=== PATIENT | male | born 1980 | race Caucasian/White ===

== ENCOUNTER 2017-12-26 07:47 | Day surgery (SDC) | payer OTHER, SELFPAY ==
--- NOTE | 2017-12-26 | EGD_PTH ---
PATIENT: GAVI JENSEN LOC: EN U#:[id number] AGE/SX: 37/M ROOM: RE12/26/[address]: Dr. Mike Adamson MD : 1980 BED: DIS: 12/26/2017 SPEC #: [id number] RECD: 12/26/17 11:55 STATUS: ERIKA ANNA #: [id number] GRANT: 12/26/17 00:[address]: Mike Adamson DEPT: SURGICAL PATHOLOGY RECD BY: Carlito De La Garza ENTERED: 12/26/17 12:44 SP TYPE: EGD BIOPSY OTHR DR: Dr. Paul Dunn III, MD Tissues: A - Small intestine biopsy B - Gastric mucous membrane Procedures: Surgery Specimen Level IV HEADER OPERATION: EGD PRE-OP DIAGNOSIS: RUQ pain TISSUE SUBMITTED: A ? Small bowel biopsy, rule out celiac sprue, B ? Antral biopsy for histo and H.?pylori MICROSCOPIC DIAGNOSIS A. Small bowel, biopsy: Fragments of small intestinal mucosa, no pathologic diagnosis. B. Antral biopsy: Minimal gastritis. ANA:fei 12/27/17 COMMENT The results of immunohistochemistry for Helicobacter pylori will be reported separately ([id number]). MICROSCOPIC DESCRIPTION Slides are reviewed. The specimen shows fragments of gastric mucosa with chronic inflammatory cell infiltrates in the lamina propria consisting of lymphocytes and plasma cells, consistent with minimal chronic gastritis. GROSS DESCRIPTION A - Received in fixative is one container labeled with the patient's name and designated small bowel biopsy. The specimen consists of two irregular fragments of light powers soft tissue that in aggregate measure 0.5 x 0.3 x 0.1 cm. The specimen is totally submitted in one cassette. B - Received in fixative is one container labeled with the patient's name and designated antral biopsy. The specimen consists of one irregular fragment of light powers soft tissue that measures 0.3 x 0.3 x 0.1 cm. The specimen is totally submitted in one cassette. / ANA:fei 12/26/17 TC:3 [facility]: [id number] x2
--- NOTE | 2017-12-26 | IMM_PTH ---
PATIENT: GAVI JENSEN LOC: EN U#:[id number] AGE/SX: 37/M ROOM: RE12/26/[address]: Dr. Mike Adamson MD : 1980 BED: DIS: 12/26/2017 SPEC #: [id number] RECD: 12/27/17 11:33 STATUS: ERIKA ANNA #: [id number] GRANT: 12/26/17 00:[address]: Mike Adamson DEPT: IMMUNOHISTOCHEMISTRY RECD BY: Tram Morris ENTERED: 12/27/17 11:33 SP TYPE: IMMUNO OTHR DR: Dr. Paul Dunn III, MD Tissues: B - Stomach, NOS Procedures: H Pylori (initial) PHYSICIAN & INSTITUTION [place] [id number] SPECIMEN INFORMATION: Tissue Source: B ? Antral biopsy Clinical Info: RUQ pain Specimen Number: [id number] CPT code: 69384 METHODOLOGY: Deparaffinized sections of prefer/formalin-fixed tissue or PAP/DQ stained slides are incubated with monoclonal/polyclonal antibodies/oligonucleotide probes. Localization is made via biotin free immunoperoxidase method. Appropriate controls are performed and reacted as expected. Results on target cell population are indicated in the following table: RESULTS: ANTIBODY / CLONE RESULT Block B H Pylori (polyclonal) negative These tests were developed and their performance characteristics determined by [facility]. They may not have been cleared or approved by the U.[place]. Food and Drug Administration. The FDA has determined that such clearance or approval is not necessary. INTERPRETATION: B. Antral biopsy: Negative for Helicobacter pylori organisms. SJ:fei 12/28/17
[2017-12-26 08:24] VITALS: BP 127/80; PULSE 82; RESP 20; TEMP 36.8; O2SAT 100; BMI 23.3
--- NOTE | 2017-12-26 09:24 | PCM.OPRPT ---
Problem List (1) Right upper quadrant pain Status: Acute Report of Operation Date of Procedure: 12/26/17 Pre-Operative Diagnosis: r10.11 right upper quadrant abdominal pain Post-Operative Diagnosis: Same Surgery/Procedure Performed:: 48299 esophagogastroduodenoscopy with biopsy Type of Anesthesia:: MAC Anesthesiologist: Ortiz Noel Description of Procedure: Patient was brought into the endoscopy suite. The back of his throat was sprayed with Cetacaine spray. A bite-block was placed. The patient was placed in the left lateral decubitus position. Under graded anesthesia the scope was inserted into the back of the oropharynx and directed down through the esophagus into the stomach and into the duodenum without difficulty. Operative findings: 1. Duodenum: Normal appearance no mass lesions biopsy for celiac sprue was obtained. The mucosal all look normal here and there was absolutely no signs of any ulcers within the duodenal bulb. 2. Stomach: Minimal gastritis was identified biopsies for H pylori and a stomach biopsy was obtained there was more erythema in the prepyloric area than there was when you go in the retroflexion and look at the fundus and cardia the stomach. There was no active bleeding. There was no ulcerations. There were no mass lesions. 3. Esophagus: Normal appearance no mass lesions no signs of esophagitis no signs of a hiatal hernia. The ZE line and sphincter were very lax and did not contract super tight and there may be a component of reflux disease that were just not appreciating even though the mucosa looks entirely normal here. I will see the patient back in 1 week discussed the biopsies with him if he still having discomfort we may add Carafate. - Admit VTE Documentation VTE Present on Admission: No VTE Mechan Device Prophylaxis: SCD's VTE Pharm Prophylaxis ordered?: No Reason prophylaxis not ordered:: Treatment Not Indicated
[2017-12-26 09:26] VITALS: BP 127/80; BP 83/68; PULSE 89; RESP 16; TEMP 36.3; O2SAT 98
[2017-12-26 09:30] VITALS: BP 103/70; BP 127/80; PULSE 82; RESP 16; O2SAT 98
[2017-12-26 09:35] VITALS: BP 109/77; BP 127/80; PULSE 80; RESP 16; O2SAT 99
[2017-12-26 09:41] VITALS: BP 113/83; BP 127/80; PULSE 77; RESP 16; TEMP 36.7; O2SAT 99
[2017-12-26 10:00] VITALS: BP 127/80
== END 2017-12-26 10:00 | disposition home or self-care (01) ==
LOC: EN 07:48 → AC 07:50
PROVIDERS: Family Provider Family Medicine; PCP Family Medicine; Visit Provider Surgery
PROC: 0DJ08ZZ Inspection of Upper Intestinal Tract, Via Natural or Artificial Opening Endoscopic (ICD-10-PCS; CPT 43235; principal; 2017-12-26 08:55)
DX: K21.9 Gastro-esophageal reflux disease without esophagitis (principal); K29.70 Gastritis, unspecified, without bleeding
CPT/HCPCS: 43239; 88305; 88342; J7120

== ENCOUNTER → 2018-01-17 16:00 | Outpatient (CLI) | payer OTHER, SELFPAY | PROVIDERS: Family Provider Family Medicine; PCP Family Medicine; Visit Provider Otolaryngology Otolaryngology/Facial Plastic Surgery | DX: J02.9 Acute pharyngitis, unspecified (principal) | CPT/HCPCS: 87070 ==

== ENCOUNTER → 2019-02-21 17:01 | Outpatient (CLI) | payer OTHER, SELFPAY | PROVIDERS: Family Provider Family Medicine; PCP Family Medicine; Referring Provider Otolaryngology Otolaryngology/Facial Plastic Surgery; Visit Provider Otolaryngology Otolaryngology/Facial Plastic Surgery | DX: J02.9 Acute pharyngitis, unspecified (principal) | CPT/HCPCS: 87070 ==

== ENCOUNTER → 2020-06-03 11:19 | Outpatient (CLI) | payer OTHER, SELFPAY ==
[2020-06-03 10:49] VITALS: BMI 23.3
[2020-06-03 12:42] LABS: Color, Urine Yellow (Yellow); Glucose, Dipstick Normal (Normal); Ketone-Dipstick Negative (Negative); Leukocyte Esterase-Dipstick Negative /ul (Negative); Nitrite-Dipstick Negative (Negative); Occult Blood-Urine Negative /ul (Negative); Protein-Dipstick Negative (Negative); Specific Gravity, Urine 1.015 (1.002-1.030); Urine Bilirubin Dipstick Negative (Negative); Urine Clarity Sl. Cloudy (Clear); Urine Urobilinogen Normal (Normal)
[2020-06-03 13:22] LABS: ALB/GLOB Ratio 1.1 RATIO (0.9-2.4); AST(SGOT) 17 U/L (15-37); Alanine Aminotransfer ALT/SGPT 34 U/L (16-61); Alkaline Phosphatase 74 U/L (45-117); Anion Gap 5 (5-15); BUN 21 mg/dL (7-18); BUN/Creat Ratio 18.4 RATIO (10-20); Calcium,Total 9.1 mg/dL (8.5-10.1); Chloride 104 mmol/L (98-107); Creatinine, Serum 1.14 mg/dL (0.70-1.30); EST Glomerular Filtration Rate 76 mL/min (>60); Est Glom Filt Rate - Afr Amer 92 mL/min (>60); Globulin 3.7 g/dL (2.2-4.2); Glucose 87 mg/dL (74-106); PSA,Total - Annual Screen 0.34 ng/mL (0.00-4.00); Potassium 3.7 mmol/L (3.5-5.1); Protein, Total 7.7 g/dL (6.4-8.2); Sodium Level 139 mmol/L (136-145)
== END ==
PROVIDERS: PCP Internal Medicine; Referring Provider Family Medicine; Visit Provider Family Medicine
DX: R35.0 Frequency of micturition (principal)
CPT/HCPCS: 36415; 80053; 81002; 84153; G0103

== ENCOUNTER 2022-01-19 14:51 | Outpatient (CLI) | payer OTHER, SELFPAY ==
[2022-01-19 14:53] LABS: Bacteria 0 SEEN /hpf (None Seen); Mucous, Urine 0 SEEN /hpf (<or=2+); Red Blood Cells-Urine 0 SEEN /hpf (0-5); Squamous Epithelial Cells - UA 0 SEEN /hpf (0-5)
[2022-01-19 16:43] LABS: Color, Urine Yellow (Yellow); Glucose, Dipstick Normal (Normal); Ketone-Dipstick Negative (Negative); Leukocyte Esterase-Dipstick 25 /ul (Negative); Nitrite-Dipstick Negative (Negative); Occult Blood-Urine Negative /ul (Negative); Protein-Dipstick Negative (Negative); Specific Gravity, Urine 1.015 (1.002-1.030); Urine Bilirubin Dipstick Negative (Negative); Urine Clarity Clear (Clear); Urine Urobilinogen Normal (Normal)
[2022-01-19 16:49] LABS: White Blood Cells 0-5 SEEN /hpf (0-5)
[2022-01-22 07:08] LABS: Chlamydia By Nucleic Acid AMP Negative (Negative)
[2022-01-22 13:32] LABS: Gonococcus By Nucleic Acid AMP Negative (Negative)
== END 2022-01-19 23:59 | disposition home or self-care (01) ==
PROVIDERS: PCP Internal Medicine; Referring Provider Nurse Practitioner Family; Visit Provider Nurse Practitioner Family
DX: N50.811 Right testicular pain (principal)
CPT/HCPCS: 81001; 87086; 87491; 87591

== ENCOUNTER 2025-07-16 21:49 | Emergency (ER) | payer OTHER, SELFPAY ==
[2025-07-16 21:49] VITALS: BP 136/100; PULSE 87; RESP 18; TEMP 36.6; O2SAT 99; BMI 23.3
--- NOTE | 2025-07-16 21:55 | RAD_ITS ---
PROCEDURE: RIGHT ANKLE MIN 3 VIEWS 07/16/2025 REASON FOR EXAM: TRAUMA TECHNIQUE: Procedure Code: RADANK Modality: DX Procedure: ANKLE MIN 3 VIEWS Laterality: Right COMPARISON: None. FINDINGS: Acute nondisplaced fracture of the lateral malleolus. No dislocation. The ankle mortise is congruent. Preserved joint spaces. Prominent soft tissue swelling about the lateral malleolus. RAD/Ankle min 3 Views IMPRESSION: Acute nondisplaced fracture of the lateral malleolus. Reading Location: [id number]
--- NOTE | 2025-07-16 23:15 | EDS_ITS ---
HPI History of Present Illness Chief Complaint: Lower Extremity Injury Detail of Chief Complaint: Patient presents because of injury to his right ankle. He had a plantar in Informant: patient Onset/Context/Timing Onset: Today Mechanism/Context: Blunt Injury and Fall Location of pain/injuries: Right ankle Quality of Pain: Dull and Aching Location: Lateral aspect of the right ankle. Current Severity: Mild Maximum Severity: Severe Worsened by: Weightbearing Relieved by: Remaining still Associated Symptoms Associated Symptoms: Negative for Parasthesias, Weakness, Loss of function, Inability to ambulate, Loss of consciousness or Amnesia Narrative Narrative: Patient is a 44-year-old male. He noted that his calf was down and he demi attention to the calf because circuit breaker went out. Apparently the's hind leg was in a groundhog trap. When he went to release the leg of the calf he slipped on the incline. He states he felt a snap. Complains of pain. Difficulty ambulating and had to use a motorized vehicle to get back to the house. He has no other complaints or injury. Prior similar symptoms: Yes Recent Illness/Hospitalization: No [facility] Medical History Right inguinal hernia Right testicular pain Abdominal pain Home Medications ?Medication ?Instructions ?Recorded ?Last Taken ?Type hydrocodone-acetaminophen 5-325mg 1 tab PO Q6H PRN PRN Pain 3 days 07/16/25 Unknown Rx 5mg-325mg #10 TABLETS Allergy/AdvReac Type Severity Reaction Status Date / Time No Known Allergies Allergy Verified 07/16/25 21:50 Family History Father Heart disease Other Diabetes Surgical History History of esophagogastroduodenoscopy (EGD) Social History Smoking Status: Never smoker alcohol intake: current substance use type: does not use ROS ROS ED Constitutional Constitutional ED: Denies chills, fever(s), subjective or sweats Eyes Eyes: Denies blurry vision or change in vision ENT ENT ED: Denies ear pain or rhinorrhea Cardiovascular Cardiovascular: Reports chest pain; Denies palpitations Respiratory/Chest Respiratory/Chest: Reports dyspnea and dyspnea on exertion; Denies cough Gastrointestinal Gastrointestinal: Denies abdominal pain, melena, nausea or vomiting Genitourinary Genitourinary ED: Denies hematuria or urinary frequency Musculoskeletal Musculoskeletal: Reports other; Denies arthralgias, back pain or myalgias Integumentary Reports Abrasions Neurologic Neurologic: Denies headache(s), paresthesias or weakness Endocrine Endocrinology: Denies cold intolerance or heat intolerance Hematologic/Lymphatic Hematologic/Lymphatic: Denies easy bleeding or easy bruising EXAM Physical Exam Const Vital Signs: 07/16/25 21:49 07/16/25 23:26 Temperature 97.8 F 99 F Temperature Source Oral Pulse Rate 87 96 Respiratory Rate 18 18 Blood Pressure 136/100 H 121/78 H Blood Pressure Mean 112 92 Pulse Ox 99 97 Oxygen Delivery Method Room Air Positive well nourished and well developed Constitutional Narrative: Patient appears uncomfortable. Vital signs are remarkable slight elevation of blood pressure. General Appearance ED: well developed HEENT HEENT Narrative: There is no septal deviation hematoma. There is no hemotympanum. There is no clinic signs of basilar skull fracture. atraumatic and tenderness Eyes PERRL and EOMs intact bilaterally General Eye ED: Yes other Other Details: There is no subconjunctival hemorrhage noted. There is no evidence of facial trauma or orbital trauma. Resp normal respiratory effort Cardio regular rhythm Cardio Narrative: There is no Melissa's crunch. Rate: regular rate GI GI Narrative: Specifically there is no tenderness over the left or right costal margin. There is no hepatosplenomegaly. Extremity normal to inspection and full ROM Extremity Narrative: Patient has swelling and pain ovation over the lateral malleolus. There is no pain ovation of the medial malleolus. There is no pain ovation the base of the fifth metatarsal. Neuro oriented x3, CN's II-XII intact bilaterally, moves all extremities, no focal motor deficits and no sensory deficits noted Sensorium / Orientation: alert Psych mental status grossly normal and thought process normal Skin no rashes or lesions noted, no wounds, skin turgor normal and no jaundice Skin Narrative: Multiple abrasions multiple sites. PROC Procedures Lower Extremity Splints Lower Extremity Splint: Plaster and Stirrup Splint Fabrication: Fabricated Location: Right MDM MDM MDM Narrative Medical decision making narrative: X-ray was obtained of the ankle. Differential diagnosis is sprain versus fracture. Radiography Chest X-Ray - ED: Read by ED Physician (Three-view x-ray of the right ankle reveals a nondisplaced Lindsey B distal fibular fracture.) Diagnostic Testing: Clinical Impression(s) from Imaging Studies Ankle X-Ray 07/16/25 21:55 IMPRESSION: Acute nondisplaced fracture of the lateral malleolus. Reading Location: [id number] Radiology report was reviewed at 0135. Agree there is a nondisplaced Lindsey type B fracture of the lateral malleolus. Management Discussion w/another healthcare provider: Sweetbread Trimmer (Dr. Smith was paged was on-call. I was informed the Dr. Rich is on-call. He was informed of patient's x-ray findings. He requested a sugar-tong splint.) Discharge Plan Triage Chief Complaint: Lower Extremity Injury ED Provider: Bj Rojo Dx/Rx/DC Orders Clinical Impression: Fracture of lateral malleolus of right ankle, Inability to ambulate due to right ankle or foot Instructions: ED Ankle Fracture, Distal Fibula Prescriptions: New hydrocodone-acetaminophen 5-325 mg tablet 1 tab PO Q6H PRN PRN (Reason: Pain) 3 Days Qty: 10 0RF Primary Care Provider: Care Physician,No Primary Referrals: Randolph Rich DPM [Med Staff - Active Staff, Podiatry] - 5-7 Days Care Physician,No Primary [Primary Care Provider, Medical] Activity Restrictions/Additional Instructions: 1. Must keep splint absolutely clean and dry. 2. Do not bear any weight on your right foot. 3. Elevate your toe above your nose. 4. Take pain medicine as prescribed. 5. Ice to your right ankle 6-10 times a day Print Language: Nepali Disposition Disposition: Home, Self Care Discharge Date/Time: 07/16/25 23:27
[2025-07-16 23:26] VITALS: BP 121/78; PULSE 96; RESP 18; TEMP 37.2; O2SAT 97
== END 2025-07-16 23:27 | disposition home or self-care (01) ==
PROVIDERS: Emergency Provider Emergency Medicine; Visit Provider Emergency Medicine
DX: S82.64XA Nondisplaced fracture of lateral malleolus of right fibula, initial encounter for closed fracture (principal); R07.9 Chest pain, unspecified; R06.09 Other forms of dyspnea; W01.0XXA Fall on same level from slipping, tripping and stumbling without subsequent striking against object, initial encounter
CPT/HCPCS: 29505; 73610; 99283